=== PATIENT | female | born 1955 | race Caucasian/White ===

== ENCOUNTER → 2016-08-15 | Outpatient (CLI) | payer OTHER | LOC: FIMAGING 08:26 | PROVIDERS: ATTEND Internal Medicine | DX: Z12.31 Encounter for screening mammogram for malignant neoplasm of breast (principal) | CPT/HCPCS: G0202 ==

== ENCOUNTER → 2016-10-14 | Outpatient (CLI) | payer OTHER | LOC: FIMAGING 13:27 | PROVIDERS: ATTEND Internal Medicine | DX: Z13.820 Encounter for screening for osteoporosis (principal); M81.0 Age-related osteoporosis without current pathological fracture; Z78.0 Asymptomatic menopausal state; Z82.62 Family history of osteoporosis ==

== ENCOUNTER 2017-08-01 18:46 | Emergency (ER) | payer OTHER ==
--- NOTE | 2017-08-01 19:03 | EDPHY ---
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 She was cutting onions and accidentally cut the left thumb at the IP joint. She immediately noticed it and inability to flex her distal thumb. She is concerned about a tendon injury. She is not concerned about foreign body fracture. REVIEW OF SYSTEMS: Constitutional: denies: chills, fever, recent illness, recent injury EENTM: denies: blurred vision, double vision, nose congestion Respiratory: denies: cough, shortness of breath Cardiac: denies: chest pain, irregular heart rate, lightheadedness, palpitations Gastrointestinal/Abdominal: denies: abdominal pain, diarrhea, nausea, vomiting, blood streaked stools Genitourinary: denies: dysuria, frequency, hematuria, pain Musculoskeletal: See HPI Skin: See HPI Neurological: denies: headache, numbness, paresthesia, tingling, dizziness, weakness Hematologic/Lymphatic: denies: blood clots, easy bleeding, easy bruising Immunologic/allergic: denies: HIV/AIDS, transplant EXAM: GENERAL: Well-appearing, well-nourished and in no acute distress. HEAD: Atraumatic, normocephalic. EYES: Pupils equal round and reactive to light, extraocular movements intact, sclera anicteric, conjunctiva are normal. ENT: TMs normal, nares patent, oropharynx clear without exudates. Moist mucous membranes. NECK: Normal range of motion, supple without lymphadenopathy or JVD. LUNGS: Breath sounds clear to auscultation bilaterally and equal. No wheezes rales or rhonchi. HEART: Regular rate and rhythm without murmurs, rubs or gallops. ABDOMEN: Soft, nontender, normoactive bowel sounds. No guarding, no rebound. No masses appreciated. BACK: No CVA tenderness, no spinal tenderness, step-offs or deformities EXTREMITIES: 3 cm laceration to left thumb at the IP joint with a 45 degree angle. No ability to flex thumb at the IP joint. Normal flexion and movement at the MCP joint. Normal sensation and capillary refill distally. NEUROLOGICAL: Cranial nerves II through XII grossly intact. Normal speech, normal gait. 5/5 strength, normal movement in all extremities, normal sensation PSYCH: Normal mood, normal affect. SKIN: Laceration see above Source: Patient Exam Limitations: No limitations - Personal History Current Tetanus Diphtheria and Acellular Pertussis (TDAP): Yes - Medical/Surgical History Hx Asthma: No Hx Chronic Respiratory Disease: No Hx Diabetes: No Hx Cardiac Disease: No Hx Renal Disease: No Hx Cirrhosis: No Hx Alcoholism: No Hx HIV/AIDS: No Hx Splenectomy or Spleen Trauma: No Other PMH: denies - Family History Significant Family History: No pertinent family hx - Social History Smoking Status: Former smoker Alcohol Use: Sober Constitutional: Initial Vital Signs Temperature (C) 36.9 C 08/01/17 18:48 Heart Rate 71 08/01/17 18:48 Respiratory Rate 18 08/01/17 18:48 Blood Pressure 180/106 H 08/01/17 18:48 O2 Sat (%) 97 08/01/17 18:48 O2 Delivery Mode Room Air Allergies/Adverse Reactions: No Known Allergies Allergy (Unverified 08/01/17 18:48) Home Medications: Medication Instructions Recorded Calcium 08/01/17 Medical Decision Making - Diagnostics Imaging Results: Imaging Impressions Finger X-Ray 08/01/17 18:58 Impression: There is no acute fracture or radiopaque foreign body. Imaging: Discussed imaging studies w/ call or contact centre operator Radiologist Procedures: Procedure: Laceration repair. Verbal consent was obtained from the patient. The 3 cm some laceration was anesthetized with 0.5% bupivacaine digital block. The wound was irrigated copiously according to protocol, draped and explored to its base. It was approximately 1/2 cm deep. There were was tendon involvement. No foreign body was identified. The wound was repaired with the 6.0 Prolene, 6 sutures, interrupted. The wound repair was simple without wound margin revisement or multiple flap alignment. The procedure was performed by myself. A dressing was then placed with sterile gauze and bacitracin. No attempt was made to repair the tendon. ED Course/Re-evaluation: I spoke with Dr. Mariel Vidal from hand surgery. He will come to evaluate the patient in the ER and plan to go to the operating room in the morning. Dr. Vidal is here evaluating the patient. Who will operate tomorrow. I performed a digital block and will repair the skin at this time. Differential Diagnosis: Partial list of the Differential diagnosis considered include but were not limited to; finger laceration, flexor tendon laceration and although unlikely based on the history and physical exam, I also considered foreign body, infection, joint injury, fracture. Departure - Departure Disposition: Home, Routine, Self-Care Clinical Impression: Laceration, Flexor tendon laceration left thumb Condition: Fair Instructions: Laceration (DC) Referrals: Kacey Rodriguez MD [Primary Care Provider] - As per Instructions Gamal Vidal MD [Medical Doctor] - 1 day without fail
[2017-08-01 20:58] VITALS: BP 170/88
--- NOTE | 2017-08-02 09:49 | GCON ---
[f rep st] CONSULTATION REFERRING PHYSICIAN: Chepe Ruiz MD REASON FOR CONSULTATION: Left thumb laceration and tendon injury. HISTORY OF PRESENT ILLNESS: The patient is a 61-year-old female who was cutting onions today with a newly sharpened knife when she accidentally cut her from thumb just near the IP joint. She lost the ability to flex het thumb at the IP joint and she presents the ER. The patient works as a nurse in [employer], [place]. REVIEW OF SYSTEMS: Review of systems is negative affect, except as noted above. PAST MEDICAL HISTORY: None. PAST SURGICAL HISTORY: None. SOCIAL HISTORY: She is a former smoker. FAMILY HISTORY: Noncontributory. OBJECTIVE: VITAL SIGNS: Within normal limits apart from blood pressure, which is elevated. GENERAL : She is alert and oriented, sitting on the gurney, in no apparent distress. MUSCULOSKELETAL: Left thumb, there is a 2 cm laceration oblique across the IP joint flexion crease. She does not have any active flexion at the IP joint. She has active extension. EPL is intact. She has flexion of the t humb MP joint. Sensation intact to light touch in the ulnar and radial digital nerves. The thumb wa s well perfused. ASSESSMENT/PLAN: Left thumb flexor pollicis longus laceration, zone 1. This is a flexor tendon inju ry. Operative repair is indicated. I discussed the timing of surgery with the patient. We will bryson n on repair of her incision tomorrow under nerve block and local anesthesia. /[id number]/MODL
== END 2017-08-01 20:50 | disposition home or self-care (01) ==
PROC: 0HQGXZZ Repair Left Hand Skin, External Approach (ICD-10-PCS; principal; 2017-08-01)
DX: S56.022A Laceration of flexor muscle, fascia and tendon of left thumb at forearm level, initial encounter (principal); Z87.891 Personal history of nicotine dependence; W45.8XXA Other foreign body or object entering through skin, initial encounter; Y99.8 Other external cause status; Y93.89 Activity, other specified

== ENCOUNTER 2017-08-02 07:21 | Day surgery (SDC) | payer OTHER ==
[2017-08-02] MEDS ORDERED: BUPIVACAINE 0.5% 30 ML SDV ONE (07:35)
[2017-08-02] MEDS ORDERED: LIDO/EPI 1% **for epidural** 30 ML SDV ONE (07:35)
[2017-08-02] MEDS ORDERED: NA BICARBONATE 50 MEQ/50 ML VIAL ONE (07:40)
--- NOTE | 2017-08-02 07:53 | PDCONSULT ---
[employer] Note: H&P CC: L thumb flexor tendon laceration HPI: Cut L thumb on sharp knife last night. Seen in ER yesterday. Unable to flex thumb Exam: Gen - NAD CV - 2+ radial p. Pulm - chest rise equal and unlabored B/L L thumb - 2cm lac over volar flexion crease, unable to flex IPJ, intact EPL. SILT RDN and UDN. thumb well perfused A/P: L thumb FPL lac -plan repair
[2017-08-02 11:01] VITALS: BP 146/91
--- NOTE | 2017-08-02 15:26 | GOP ---
[f rep st] OPERATIVE REPORT DATE OF OPERATION: 08/02/2017 SURGEON: Gamal Vidal MD ANESTHESIA: Local 1% lidocaine with epinephrine and plain Marcaine placed by ny in the preop area. PREOPERATIVE DIAGNOSIS: Left thumb flexor pollicis longus laceration, zone 1. POSTOPERATIVE DIAGNOSIS: Left thumb flexor pollicis longus laceration, zone 1. PROCEDURE PERFORMED: Left thumb flexor pollicis longus repair in zone 1. FINDINGS: ESTIMATED BLOOD LOSS: 5 cc. INDICATIONS: The patient is a 61-year-old female who sustained this injury yesterday. She cut her t humb with a sharp knife, sustaining a laceration to her FPL. She could not flex her IP joint. A elvira antonio is indicated for this injury. We planned on this surgery today under local. I discussed with h er risks and benefits of surgery at length. These, include pain, bleeding, infection, damage to surr ounding structures, late tendon rupture, stiffness, need for further operations, including tenolysis. She understood these risks and wished to proceed. DESCRIPTION OF PROCEDURE: The patient was seen in the preoperative holding area. She was given an o pportunity to ask questions. All questions were answered. Consent was signed. Surgical site was [facility]. I performed the injection of the local in the preop area and then transferred the patient to [facility] operative suite. Care was taken to pad all bony prominences on the gurney. Time-out was called, including surgical and nursing teams confirming the surgical site and procedure to be performed. The left upper extremity was prepped and draped in the usual sterile fashion. She had a 2 cm laceration that was oblique, essentially across the IP flexion crease. I extended the laceration distally and proximally in a Tito type pattern. First I dissected down carefully to th e flexor tendon sheath, which was empty. I identified both ulnar and radial digital nerves and kept these protected and visualized at all times. I had to extend the incision proximally to identify the tendon. The tendon was outside of the A1 audi. Identified the tendon. I then used a Carrel tend on Passer to pull it into the tendon sheath. Sequentially pulled in up to the level of the DIP joint where she lacerated it, followed there with a hypodermic needle. I then dissected distally deep to the pulp over the stump. She had about a 1 cm stump of tendon. I did discuss with her that the may be a need for a pullout bu tton if there is not enough stump. I then proceeded to perform the core suture repair with a 4-0 Fib erWire suture and performed a 4 strand cruciate type repair. I was able to get a good bite to the di stal stump. I had the patient actively flex. There was a little bit of gapping. I tightened the re pair. Then, I segmented it with a Henderson type suture, which added 2 more strands to the repair, karin s having a 6 strand repair. I then augmented this with an epitendinous suture with 6-0 Prolene. I t malinda inspected the repair. She had a nice repair that was flat. I was able to get an adequate bite o n the stump, I thus decided not to augment over a button. I asked the patient to flex her thumb. Th ere was good flexion of the thumb IP joint without gapping of the tendon, and it was not catching on the audi with no bowstring. At this point, I irrigated copiously with sterile saline over a L. I then closed the incision with 4 -0 Prolene and nylon. The finger was well perfused at all times and all bleeding was controlled at a ll times. Patient was placed in a dorsal block splint for the thumb. She was awakened. She tolerat ed the procedure well, and was taken to PACU in stable condition. POSTOP CONDITION: Stable. POSTOPERATIVE PLAN: The patient will begin therapy in about 3 days. She will follow up in clinic wi th ny in about 10 days. We will arrange therapy and will begin a flexor tendon protocol. /[id number]/MODL
== END 2017-08-02 11:20 | disposition home or self-care (01) ==
LOC: FSGY 08:00
PROVIDERS: ATTEND Orthopaedic Surgery Hand Surgery
PROC: 0LQ80ZZ Repair Left Hand Tendon, Open Approach (ICD-10-PCS; principal; 2017-08-02 08:25)
DX: S66.022A Laceration of long flexor muscle, fascia and tendon of left thumb at wrist and hand level, initial encounter (principal); W26.0XXA Contact with knife, initial encounter